=== PATIENT | female | born 1990 | race Caucasian/White ===

== ENCOUNTER 2018-10-13 11:32 | Emergency (ER) | payer OTHER ==
--- NOTE | 2018-10-13 11:38 | UC ---
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 No recent illness / fever / chills. Vomited x 2 at onset of sx (food and water). No rash. Mild h/a. Did not pass out. + light headed. Has a lot of stress right now. Does not have a pcp. No issues. - History of Current Complaint Stated Complaint: BACK PAIN,NUMB HAND,NAUSEA Time Seen by Provider: 10/13/18 11:36 Hx Last Menstrual Period: 08/14/15 - Allergy/Home Medications Allergies/Adverse Reactions: Allergies Allergy/AdvReac Type Severity Reaction Status Date / Time No Known Allergies Allergy Verified 10/13/18 11:42 Home Medications: Home Medications NK [No Home Medications Reported] 10/13/18 [History Confirmed 10/13/18] PMH/Surg Hx/FS Hx/Imm Hx Previously Healthy: Yes - Surgical History Surgical History: Yes Surgery Procedure, Year, and Place: c-sections x 3 - Family History Known Family History: Positive: Unknown - Social History Alcohol Use: None Substance Use Type: None Smoking Status (MU): Heavy Every Day Tobacco Smoker Type: Cigarettes Amount Used/How Often: 1/2 ppd Length of Time of Smoking/Using Tobacco: started at age 18 Have You Smoked in the Last Year: Yes - Immunization History Most Recent Influenza Vaccination: 2012 Review of Systems All Other Systems Reviewed And Are Negative: Yes Constitutional: Positive: Other - see hpi Skin: Positive: Other - see hpi Eyes: Positive: Other - see hpi ENT: Positive: Other - see hpi Respiratory: Positive: Other - see hpi Cardiovascular: Positive: Other - see hpi Gastrointestinal: Positive: Other - see hpi Genitourinary: Positive: Other - see hpi Motor: Positive: Other - see hpi Neurovascular: Positive: Other - see hpi Musculoskeletal: Positive: Other: - see hpi Neurological: Positive: Other - see hpi Psychological: Positive: Other - see hpi Is Patient Immunocompromised?: No Physical Exam Triage Information Reviewed: Yes Appearance: Well-Nourished Vital Signs Reviewed: Yes Eye Exam: Normal ENT Exam: Normal Neck exam: Normal Neck: Positive: Supple, Nontender, No Lymphadenopathy Respiratory Exam: Normal Respiratory: Positive: Chest non-tender, Lungs clear, Normal breath sounds, No respiratory distress, No accessory muscle use Cardiovascular Exam: Normal Cardiovascular: Positive: RRR, No Murmur, Pulses Normal, Brisk Capillary Refill Abdominal Exam: Normal Abdomen Description: Positive: Nontender Musculoskeletal Exam: Normal - gait steady, moves x 4 ext's Neurological Exam: Normal - grossly nonfocal Psychological Exam: Normal - conversing easily and appropriately. initially tearful, and anxious appearing. Calmer over time. Skin Exam: Normal - nondiaphoretic. no visible or reported rash. Course/Dx - Course Course Of Treatment: Bld glucose 127mg / dl EKG sr at 60bpm. no old for comp. pr 126 qtc 409 Declined IVF's. Will let us know if she changes her mind. 13:30 - no new issues. Drank plenty of fluids while here in [facility]. Reviewed urine dip with pt. + blood. She reports that she just started her period again while in the restroom. cx sent. Sitting up, walking around, conversing easily. "Ready to go." Questions as posed answered to the best of my ability. She is planning to see a new PCP, knows the name / office number but has not yet seen her. Will call on Tuesday to schedule an appointment for next available as a new pt. Aware to go to the ED if worse / recurrence / new sx. - Diagnoses Provider Diagnosis: Lightheaded, Dehydration Discharge - Sign-Out/Discharge Documenting (check all that apply): Patient Departure All imaging exams completed and their final reports reviewed: No Studies - Discharge Plan Condition: Improved Disposition: HOME Patient Education Materials: Dehydration (ED), Lightheadedness (ED) Forms: *Work Release Referrals: No Primary Care Phys,NOPCP [Primary Care Provider] - Additional Instructions: Follow up with your new primary care physician as soon as possible. Call the office on Tuesday to schedule an appointment. Meanwhile, please go to the Emergency Department for any problems, worse or new symptoms. Blood tests ordered: cbc (complete blood count) cmp (comprehensive metabolic profile) magnesium level crp (inflammation test) tsh (thyroid) - Billing Disposition and Condition Condition: IMPROVED Disposition: Home
[2018-10-13 11:47] VITALS: BP 103/58
[2018-10-13 19:06] LABS: ABS Lymphocytes 1.4 10^3/ul (1.0-4.8); ABS Monocytes 0.7 10^3/ul (0-0.8); ABS Neutrophils 8.5 10^3/ul (1.5-7.7); Eosinophil % 0.2 %; Hematocrit 43 % (35-47); Hemoglobin 14.6 g/dL (12.0-16.0); Lymphocyte % 12.9 %; Mean Corpuscular HGB Conc 34 g/dL (31-36); Mean Corpuscular Hemoglobin 30 pg (27-31); Mean Corpuscular Volume 88 fL (80-97); Mean Platelet Volume 7.3 fL (7.4-10.4); Nucleated Red Blood Cells % 0.1; Platelet Count 324 10^3/uL (150-450); Red Blood Count 4.82 10^6 /uL (3.70-4.87); Red Cell Distribution Width 12 % (10.5-15); White Blood Count 10.6 10^3/uL (3.5-10.8)
[2018-10-13 19:12] LABS: Albumin 4.6 g/dL (3.2-5.2); Calcium 9.4 mg/dL (8.6-10.3); Magnesium 1.8 mg/dL (1.9-2.7); Potassium 3.8 mmol/L (3.5-5.0); Total Bilirubin 0.6 mg/dL (0.2-1.0)
[2018-10-13 19:18] LABS: Albumin/Globulin Ratio 1.7 (1-3); BUN/Creatinine Ratio 19.1 (8-20); C Reactive Protein 1.55 mg/L (<8.01); EGFR African American 127.6 (>60); EGFR Non-African American 105.4 (>60); Globulin 2.7 g/dL (2-4); Total Protein 7.3 g/dL (6.4-8.9)
[2018-10-13 19:30] LABS: TSH (Thyroid Stimulating Horm) 1.69 mcIU/mL (0.34-5.60)
== END 2018-10-13 14:05 | disposition home or self-care (01) ==
LOC: UCCORT 11:32
DX: E86.0 Dehydration (principal); F17.210 Nicotine dependence, cigarettes, uncomplicated
CPT/HCPCS: 36415; 80053; 81003; 83735; 84443; 84702; 85025; 86140; 93005; 99211; G0463

== ENCOUNTER 2019-03-07 14:01 | Emergency (ER) | payer OTHER ==
[2019-03-07 14:36] VITALS: BP 104/57
--- NOTE | 2019-03-07 14:59 | UC ---
Complaint Female HPI - HPI Summary HPI Summary: 28-year-old female who has had lower back pain for about 2 weeks and pressure when urinating. She denies any abnormal vaginal discharge. She has had a tubal ligation in the past. - History Of Current Complaint Chief Complaint: UCBackPain Stated Complaint: LOW BACK PAIN Time Seen by Provider: 03/07/19 14:38 Hx Obtained From: Patient Hx Last Menstrual Period: 02/22/19; hx tubal ligation ?: No Onset/Duration: Gradual Onset Timing: Intermittent Severity Initially: Mild Severity Currently: Mild Pain Intensity: 6 Character: Dull, Burning Aggravating Factor(s): Urination, Other - Pressure when urinating. Alleviating Factor(s): Nothing Associated Signs And Symptoms: Positive: Back Pain - Occasional low back pain.. Negative: Vaginal Bleeding/Discharge, Vaginal Discharge, Nausea, Genital Swelling, Genital Blisters - Allergies/Home Medications Allergies/Adverse Reactions: Allergies Allergy/AdvReac Type Severity Reaction Status Date / Time No Known Allergies Allergy Verified 03/07/19 14:30 Home Medications: Home Medications Anxiety/Depression Med 1 tab QPM 03/07/19 [History Confirmed 03/07/19] PMH/Surg Hx/FS Hx/Imm Hx Previously Healthy: Yes - Surgical History Surgical History: Yes Surgery Procedure, Year, and Place: c-sections x 4. tubal ligation - Family History Known Family History: Positive: Unknown - Social History Alcohol Use: None Substance Use Type: None Smoking Status (MU): Light Every Day Tobacco Smoker Type: Cigarettes Amount Used/How Often: 6 cigs/day Length of Time of Smoking/Using Tobacco: started at age 18 Have You Smoked in the Last Year: Yes - Immunization History Most Recent Influenza Vaccination: 2012 Review of Systems All Other Systems Reviewed And Are Negative: Yes Genitourinary: Positive: Urgency Musculoskeletal: Positive: Other: - Mild low back pain over the past 2 weeks. Is Patient Immunocompromised?: No Physical Exam Triage Information Reviewed: Yes Appearance: Well-Appearing, No Pain Distress, Well-Nourished Vital Signs: Initial Vital Signs Temp 97.6 F 03/07/19 14:30 Pulse 73 03/07/19 14:30 Resp 16 03/07/19 14:30 BP 104/57 03/07/19 14:30 Pulse Ox 100 03/07/19 14:30 Vital Signs Reviewed: Yes Eyes: Positive: Conjunctiva Clear ENT: Positive: Pharynx normal, TMs normal, Uvula midline Neck: Positive: Supple, Nontender, No Lymphadenopathy Respiratory: Positive: Lungs clear, Normal breath sounds, No respiratory distress, No accessory muscle use Cardiovascular: Positive: RRR, No Murmur, Pulses Normal, Brisk Capillary Refill Abdomen Description: Positive: Nontender, No Organomegaly, Soft. Negative: CVA Tenderness (R), CVA Tenderness (L), Distended, Guarding, Hepatomegaly, McBurney' s Point Tenderness, Splenomegaly Bowel Sounds: Positive: Present Musculoskeletal Exam: Normal Neurological Exam: Normal Psychological Exam: Normal Skin Exam: Normal Complaint Female Dx - Course Course Of Treatment: Patient is comfortable here. Urinalysis was positive for urinary tract infection. Urine test was negative. She is to increase fluids. Able to treat her with Bactrim DS one tab by mouth twice a day 5 days. Definite follow-up with her primary care provider if no improvement in 4 or 5 days. - Differential Dx/Diagnosis Provider Diagnosis: UTI (urinary tract infection) Discharge ED - Sign-Out/Discharge Documenting (check all that apply): Patient Departure All imaging exams completed and their final reports reviewed: No Studies - Discharge Plan Condition: Good Disposition: HOME Prescriptions: Sulfamethox/Trimethoprim DS* [Bactrim DS 800/160 TAB*] 1 tab PO BID 5 Days #10 tab Patient Education Materials: Urinary Tract Infection in Women (DC) Referrals: Alayna Kruger NP [Primary Care Provider] - Additional Instructions: Increase fluids, take the Bactrim with food. Definite follow-up with your primary care provider if no improvement in 4 or 5 days. Go to the emergency room if you develop fever, chills, vomiting and unable keep the medication down. - Billing Disposition and Condition Condition: GOOD Disposition: Home - Attestation Statements Provider Attestation: Per institutional requirements, I have reviewed the chart, however, I was not consulted specifically or made aware of this patient by the midlevel provider. I did not personally evaluate, interact with , or disposition this patient.
--- NOTE | 2019-03-10 07:34 | UC ---
- Progress Note Progress Note: + Proteus on Bactrim no change vic Course/Dx - Diagnoses Provider Diagnoses: UTI (urinary tract infection) Discharge ED - Sign-Out/Discharge Documenting (check all that apply): Post-Discharge Follow Up All imaging exams completed and their final reports reviewed: No Studies - Discharge Plan Condition: Good Disposition: HOME Prescriptions: Sulfamethox/Trimethoprim DS* [Bactrim DS 800/160 TAB*] 1 tab PO BID 5 Days #10 tab Patient Education Materials: Urinary Tract Infection in Women (DC) Referrals: Alayna Kruger NP [Primary Care Provider] - Additional Instructions: Increase fluids, take the Bactrim with food. Definite follow-up with your primary care provider if no improvement in 4 or 5 days. Go to the emergency room if you develop fever, chills, vomiting and unable keep the medication down. - Billing Disposition and Condition Condition: GOOD Disposition: Home
== END 2019-03-07 15:03 | disposition home or self-care (01) ==
LOC: UCCORT 14:01
DX: N39.0 Urinary tract infection, site not specified (principal); A49.8 Other bacterial infections of unspecified site; F17.210 Nicotine dependence, cigarettes, uncomplicated
CPT/HCPCS: 81003; 84702; 87077; 87086; 87186; 99212; G0463